=== PATIENT | female | born 1980 | race Caucasian/White ===

== ENCOUNTER 2016-07-12 05:39 | Day surgery (SDC) | payer MEDICAID ==
[2016-07-10 15:27] LABS: BASOPHILS 0.3 % (0.0-2.0); EOSINOPHILS 1.5 % (0-7); HEMATOCRIT 39.8 % (36.0-48.0); HEMOGLOBIN 13.2 g/dL (12-16); IMMATURE GRANULOCYTES 0.1 % (0-5); LYMPHOCYTES 38.8 % (15-50); MCH 27.8 pg (26.0-34.0); MCHC 33.2 g/dL (31.0-37.0); MEAN PLATELET VOLUME 9.6 fL (7.4-10.4); MONOCYTES 5.5 % (2-11); NEUTROPHILS 53.8 % (40-80); RBC 4.74 10x6/uL (4.00-5.40); RDW 14.2 % (11.5-14.5); WBC 8.7 10x3/uL (4.8-10.8)
[2016-07-10 15:39] LABS: PLATELET COUNT 187 10x3/uL (130-400)
[~2016-07-12] VITALS: Ht 162.6 cm; Wt 57.2 kg
[~2016-07-12 05:39] MED LIST: HYDROCODONE-APA1 TAB PO; IBUPROFEN600 MG PO; NIFEDIPINE ER30 MG PO; PRENATAL COMPLE1 TAB PO
[2016-07-12 10:20] VITALS: BP 115/74; Ht 162.6 cm; Wt 57.2 kg
[2016-07-12 10:52] LABS: HCG URINE NEGATIVE (NEGATIVE)
--- NOTE | 2016-07-12 14:28 | NUR ---
1400-RECEIVED PT FROM PACU AWAKE AND ALERT, VSS NO DISTRESS DENIES ANY PAIN OR N/V NO BLEEDING NOTED 1420-PT UP TO BATHROOM VOIDED WITHOUT ANY DIFFICULTY, FULL LIQUID TRAY GIVEN WILL CONTINUE TO MONITOR
--- NOTE | 2016-07-12 14:47 | NUR ---
1447-PT TOLERATED FULL LIQUID TRAY WELL, IV DISCONTINUED WITH CATHETER INTACT
--- NOTE | 2016-07-12 15:11 | NUR ---
1510-DISCHARGE INSTRUCTIONS GIVEN AND WENT OVER WITH PATIENT COPY HANDED TO HER WITH A FOLLOW UP APPOINTMENT MADE. PT STATES UNDERSTANDING AND DENIES ANY NEEDS OR CONCERNS AT THIS TIME. PT ESCORTED OUT VIA WHEELCHAIR IN STABLE CONDITION WITHOUT ANY DISTRESS WITH FAMILY TO DRIVE HOME IN PERSONAL CAR
--- NOTE | 2016-08-02 09:02 | OP ---
PATIENT NAME: SILVIA THOMAS MEDICAL RECORD: [id number] :80 LOCATION:D.OPS ADMISSION DATE: SURGEON: LEBRON DELGADO MD DATE OF OPERATION: 07/12/2016 PREOPERATIVE DIAGNOSIS: High-grade cervical dysplasia. POSTOPERATIVE DIAGNOSIS: High-grade cervical dysplasia. PROCEDURE: Removal of right vulvar lesions and loop electrosurgical excision procedure. SURGEON: Lebron Delgado MD ANESTHESIA: General by LMA. INTRAVENOUS FLUIDS: Per anesthesia record. SPECIMENS: Right vulvar lesion and cervical cone biopsy. COMPLICATIONS: None apparent. ESTIMATED BLOOD LOSS: Minimal. DESCRIPTON OF THE PROCEDURE: The patient was taken to the operating room where general anesthesia was achieved without difficulty. The patient was prepped and draped in normal sterile fashion in the dorsal lithotomy position in the [facility]. SCDs were on and running. The bladder was straight cathed approximately 5 cc of clear yellow urine. At that point, an insulated speculum was placed into the vagina. The cervix was identified and a loop electrosurgical excision procedure was performed to a depth of approximately 8-9 mm, the cervical crater was then fulgurated using the ball tip with good hemostasis noted. Monsel solution was then placed on the cervical crater and the speculum was removed, good hemostasis was noted. Attention was then turned to the right vulvar lesion, which was then grasped using a Japanese forceps and the loop cautery device was then used to excise at the base, a 3-0 Vicryl stitch was then used to approximate the skin with good hemostasis. The patient tolerated the procedure well, transferred to postanesthesia recovery stable without incident. TRANSINT:[id number] Voice Confirmation ID: [id number] DOCUMENT ID: [id number] LEBRON DELGADO MD at 0902 CC: [id number] DICTATION DATE: 07/12/16 1338 VACUUM METALIZER OPERATOR: 07/12/16 1849 [facility] 07/12/16 [place] [id number]
== END 2016-07-12 15:10 | disposition home or self-care (01) ==
LOC: D.OPS 05:39 → D.PAN 10:00 → D.OPS 15:10
PROVIDERS: Obstetrics & Gynecology
DX: D06.0 Carcinoma in situ of endocervix (principal); N72 Inflammatory disease of cervix uteri; N90.89 Other specified noninflammatory disorders of vulva and perineum; I10 Essential (primary) hypertension; Z79.891 Long term (current) use of opiate analgesic; Z79.1 Long term (current) use of non-steroidal anti-inflammatories (NSAID); Z79.899 Other long term (current) drug therapy; F17.200 Nicotine dependence, unspecified, uncomplicated

== ENCOUNTER 2016-09-13 05:47 | Day surgery (SDC) | payer MEDICAID ==
[2016-09-11 10:31] LABS: BASOPHILS 0.4 % (0-2); HEMATOCRIT 42.9 % (36.0-48.0); HEMOGLOBIN 13.9 g/dL (12-16); IMMATURE GRANULOCYTES 0.1 % (0-5); MCH 27.7 pg (26.0-34.0); MCHC 32.4 g/dL (31.0-37.0); MCV 85.5 fL (80.0-100.0); MEAN PLATELET VOLUME 9.8 fL (7.4-10.4); NEUTROPHILS 56.5 % (40-80); PLATELET COUNT 202 10x3/uL (130-400); RBC 5.02 10x6/uL (4.00-5.40)
[~2016-09-13] VITALS: Ht 162.6 cm; Wt 56.7 kg
--- NOTE | ~2016-09-13 | OP ---
PATIENT NAME: SILVIA THOMAS MEDICAL RECORD: [id number] :80 LOCATION:[facility] ADMISSION DATE: SURGEON: LEBRON DELGADO MD DATE OF OPERATION: 09/13/2016 PREOPERATIVE DIAGNOSIS: High-grade cervical dysplasia. POSTOPERATIVE DIAGNOSIS: High-grade cervical dysplasia. PROCEDURE: Loop electrosurgical excision procedure. SURGEON: Lebron Delgado MD ESTIMATED BLOOD LOSS: Minimal. INTRAVENOUS FLUIDS: Per anesthesia records. FINDINGS: Grossly normal appearing cervix and vagina. SPECIMENS: Cervical cone biopsy in 2 pieces. DESCRIPTION OF PROCEDURE: The patient was taken to the operating room where general anesthesia was achieved without difficulty. The patient was prepped and draped in normal sterile fashion in dorsal lithotomy position in the [facility]. At this point, approximately 50 cc of clear urine was drained with straight catheter from the patient's bladder. An insulated bivalve speculum was then placed into the vagina and the cervix was identified. At this point, a loop electrode was then used to remove approximately 7-8 mm of depth of the cervical transitional zone. The 5-mm square loop electrode was then used to excise another 3-mm or so in the most medial portion of the endocervical canal. Good hemostasis was noted. The entire canal was then fulgurated using the Bovie cautery. Monsel solution was then placed on the cervical crater. The speculum was then removed. The patient tolerated the procedure well and was transferred to postanesthesia recovery stable without incident. TRANSINT:[id number] Voice Confirmation ID: [id number] DOCUMENT ID: [id number] LEBRON DELGADO MD CC: [id number] DICTATION DATE: 09/13/16 1111 CHARGEMASTER ANALYST: 09/13/16 2108 [facility] 09/13/16 [facility] [address] [place] [address]
[2016-09-13 06:43] VITALS: BP 126/81; Ht 162.6 cm; Wt 56.7 kg
[2016-09-13 07:14] LABS: HCG URINE NEGATIVE (NEGATIVE)
[2016-09-13] MEDS ORDERED: HYDROCODON-ACE1 EAC7 PO (10:07)
[2016-09-13] MEDS ORDERED: IBUPROFEN600 MG PO (10:07)
== END 2016-09-13 10:40 | disposition home or self-care (01) ==
LOC: D.OPS 05:47 → D.PAN 08:15 → D.OPS 08:15
PROVIDERS: Obstetrics & Gynecology
DX: R87.613 High grade squamous intraepithelial lesion on cytologic smear of cervix (HGSIL) (principal); F17.200 Nicotine dependence, unspecified, uncomplicated; I10 Essential (primary) hypertension; Z01.812 Encounter for preprocedural laboratory examination

== ENCOUNTER 2016-10-17 06:11 | Emergency (ER) | payer MEDICAID ==
[2016-09-13 06:43] VITALS: BMI 21.5
[~2016-10-17 06:11] MED LIST changes: +HYDROCODON-ACE1 EAC7 PO
[2016-10-17 06:54] LABS: BASOPHILS 0.5 % (0-2); EOSINOPHILS 0.6 % (0-7); HEMATOCRIT 41.9 % (36.0-48.0); IMMATURE GRANULOCYTES 0.3 % (0-5); LYMPHOCYTES 28.2 % (15-50); MCH 27.9 pg (26.0-34.0); MCHC 33.4 g/dL (31.0-37.0); MCV 83.5 fL (80.0-100.0); MEAN PLATELET VOLUME 9.4 fL (7.4-10.4); MONOCYTES 7.1 % (2-11); NEUTROPHILS 63.3 % (40-80); PLATELET COUNT 172 10x3/uL (130-400); RBC 5.02 10x6/uL (4.00-5.40); RDW 14.8 % (11.5-14.5); WBC 6.5 10x3/uL (4.8-10.8)
[2016-10-17 07:24] LABS: CALC OSMOLALITY 273 mosm/kg (275-300); CALCIUM 8.7 mg/dL (8.5-10.1); CARBON DIOXIDE 24.6 mmol/L (21.0-32.0); CHLORIDE - SERUM 102 mmol/L (98-107); CREATINE KINASE 148 UL (21-215); CREATININE - SERUM 1.1 mg/dL (0.6-1.3); GLUCOSE 95 mg/dL (74-106); POTASSIUM - SERUM 3.8 mmol/L (3.5-5.1); SODIUM 137 mmol/L (136-145); TROPONIN-I < 0.017 ng/mL (0.000-0.060); UREA NITROGEN 12 mg/dL (7-18); eGFR NON AFRICAN AMERICAN 60 mL/min (90-120)
== END 2016-10-17 10:40 | disposition left against medical advice (07) ==
LOC: D.ER 06:11
PROVIDERS: Family Medicine
DX: R51 Headache (principal); R42 Dizziness and giddiness; H53.8 Other visual disturbances

== ENCOUNTER 2018-09-19 05:00 | Day surgery (SDC) | payer BC ==
[2018-09-18 09:14] LABS: BASOPHILS 0.5 % (0-2); EOSINOPHILS 1.5 % (0-7); HEMATOCRIT 42.8 % (36.0-48.0); HEMOGLOBIN 14.6 g/dL (12-16); IMMATURE GRANULOCYTES 0.1 % (0-5); LYMPHOCYTES 35.4 % (15-50); MCH 29.4 pg (26.0-34.0); MCHC 34.1 g/dL (31.0-37.0); MCV 86.3 fL (80.0-100.0); MEAN PLATELET VOLUME 9.4 fL (7.4-10.4); MONOCYTES 5.5 % (2-11); PLATELET COUNT 182 10x3/uL (130-400); RBC 4.96 10x6/uL (4.00-5.40); RDW 13.3 % (11.5-14.5); WBC 7.6 10x3/uL (4.8-10.8)
[2018-09-18 09:26] LABS: INR 1.02 (0.85-1.17); PROTIME 12.9 SECONDS (11.6-15.0)
[2018-09-18 09:27] LABS: APTT 64.2 SECONDS (22.8-39.4)
[2018-09-19 06:17] VITALS: BP 119/76; BMI 20.9
[2018-09-19 06:35] LABS: HCG URINE NEGATIVE (NEGATIVE)
[2018-09-19 06:45] VITALS: BMI 20.9
[2018-09-19 07:46] LABS: INR 1.06 (0.85-1.17); PROTIME 13.3 SECONDS (11.6-15.0)
[2018-09-19 07:50] LABS: APTT 32.1 SECONDS (22.8-39.4)
[2018-09-19] MEDS ORDERED: PERCOCET 5-3251 TAB PO (13:11)
--- NOTE | 2018-09-19 13:50 | NUR ---
PATIENT STATES FEELING MUCH BETTER, WANTS TO GO HOME, PATIENT AMBULATES TO BATHROOM AND VOIDS IN TOILET FOR SECOND TIME SINCE SURGERY. STATES PAIN IS MUCH BETTER, RATES PAIN AT 4 ON 0-10 SCALE. DECLINES PAIN MED AT THIS TIME DUE TO RISK FOR SEDATION. RIGHT HAND PIV DC'D WITH TIP INTACT. PATIENT STATES SHE PULLED VAGINAL PACKING OUT WHEN IN BATHROOM THIS TIME. DISCHARGE INSTRUCTIONS REVIEWED WITH PATIENT. DISCHARGED HOME VIA WHEELCHAIR TO PRIVATE VEHICLE AT 1400
--- NOTE | 2018-09-22 09:03 | OP ---
PATIENT NAME: SILVIA THOMAS MEDICAL RECORD: [id number] :80 LOCATION:D.OPS ADMISSION DATE: SURGEON: SUSAN DIEZ MD DATE OF OPERATION: 09/19/2018 SURGEON: Susan Diez MD ANESTHESIA: General anesthesia by Enrrique Soni CRNA. DIAGNOSES: 1. Female stress urinary incontinence. 2. Interstitial cystitis. PROCEDURES: 1. Pubovaginal sling with mesh -- Coloplast Nilson. 2. Cystoscopy, hydrodistention to 600 mL, intravesical Rimso installation. FINDINGS: On cystoscopy, no bladder injury. Diffuse bladder inflammation without any bladder tumors. Single ureteral orifices bilaterally. ESTIMATED BLOOD LOSS: Less than 50 mL. CLINICAL HISTORY: This is a 37-year-old female, , A0, who has a problem with cervical dysplasia. Dr. Delgado is going to perform a third LEEP procedure on her today. At the same time, she wanted to have her female stress urinary incontinence and interstitial cystitis symptoms dealt with. She does not plan to have any more children. She is not allergic to any medications. She was given perioperative antibiotics by Dr. Delgado who went first with her surgery. Once he had completed the LEEP surgery, then I came in to do my portion of the procedure. DESCRIPTION OF PROCEDURE: She was already in the stirrups and I placed her in Trendelenburg position. The stirrups were relatively high and I placed the legs in a much lower position closer to being flat. The reason for doing this is that if the sling is placed when the legs were very high up and if the tension seems adequate at that time when the patient is actually standing or sitting, it will be excessive tension. Therefore, it is better to place the sling with the legs relatively flat. The weighted speculum was placed to hold down the posterior vaginal wall. The anterior vaginal wall was infiltrated with Pitressin solution. Twenty units of Pitressin was dissolved in 100 mL of injectable saline. This was injected into the periurethral area for hydrodissection. A Cosme catheter was placed into the bladder to bag drainage. A T-shaped incision was made in the anterior vaginal wall under the urethra. The crossbar of the T was about 1 cm away from the urethral meatus. The vertical bar of the T runs along the anterior urethral wall under the urethra. Dissection was done using Metzenbaum scissors. We dissected the pubocervical fascia until the obturator membrane was exposed on each side. We then landmarked for the trocar passage for the transobturator passage of the Coloplast Nilson graft. This was inferior to the insertion of the adductor longus tendon on the descending pubic ramus. A stab incision was made here on each side. The helical trocars were then passed through this groin stab incision, deep to the descending pubic ramus and out through the apex of the obturator membrane anteriorly. Once it was in the vaginal dissection space, the graft was threaded through the eyelet hole in the end of the trocar needle. The needle was then withdrawn resulting in transobturator passage of the graft. This was OPERATIVE REPORT [id number] SILVIA THOMAS done on each side. The graft was placed under the mid urethra relatively loosely. It laid completely flat. At this point, we removed the Cosme catheter and cystoscopy was performed. No bladder injury was noted. She was given hydrodistention to 600 mL of saline and the volume was held for a few minutes. The bladder was diffusely inflamed. No bladder tumors were seen. Now with some manual suprapubic pressure, we could see leakage of urine per the urethra. The sling tension was gradually increased until the leakage was greatly diminished. With sufficient suprapubic pressure; however, this could still be overcome. At this point, I did not wish to put any more sling pressure because I did not want her to go into retention postoperatively. The sling ends were cut where they exited the groin skin. The skin was closed with simple interrupted 4-0 Vicryl. The Cosme catheter was placed back into the bladder to drain the bladder. The vaginal incision was closed using running 4-0 Monocryl. Vaginal packing consisting of Kerlix infiltrated with estrogen cream was placed into the vagina. This will be removed prior to the patient going home today. Finally, we removed the Cosme catheter and placed a red rubber catheter into the bladder. Through the lumen of the red rubber catheter, we instilled 50 mL of Rimso solution into the bladder. Once the solution was in the bladder, the catheter was removed, leaving the solution in the bladder. The patient will void this solution out today. TRANSINT:[id number] Voice Confirmation ID: [id number] DOCUMENT ID: [id number] SUSAN DIEZ MD at 0903 CC: [id number] DICTATION DATE: 09/19/18 1023 BOXCAR WEIGHER: 09/19/18 1235 [facility] 09/19/18 [place] [id number] [place] [id number]
--- NOTE | 2018-10-23 19:34 | OP ---
PATIENT NAME: SILVIA THOMAS MEDICAL RECORD: [id number] :80 LOCATION:D.[facility] ADMISSION DATE: SURGEON: LEBRON DELGADO MD DATE OF OPERATION: 09/19/2018 PREOPERATIVE DIAGNOSIS: High-grade cervical dysplasia. POSTOPERATIVE DIAGNOSIS: High-grade cervical dysplasia. PROCEDURE: Loop electrosurgical excision procedure (LEEP). SURGEON: Lebron Delgado MD ANESTHESIA: General endotracheal. INTRAVENOUS FLUIDS: Per anesthesia record. ESTIMATED BLOOD LOSS: Minimal. SPECIMENS: Cervical cone biopsy. FINDINGS: Grossly normal-appearing external genitalia and cervix. COMPLICATIONS: None apparent. PROCEDURE IN DETAIL: The patient was taken to the operating room, where general anesthesia was achieved without any difficulty. The patient was then prepped and draped in normal sterile fashion in the dorsal lithotomy position in the [facility]. The patient was prepped and draped. The bladder was drained of approximately 50 cc of clear yellow urine. At this point, an insulated speculum was placed into the vagina, which had been thoroughly prepped. The cervical os was identified and a LEEP procedure was performed using a 2- x 1-cm loop electrode tip. Good hemostasis was noted and the remaining crater was then cauterized using the ball tip cautery and a ferric subsulfate solution was placed onto the cervix. The speculum was removed. The patient tolerated the procedure well. The patient was kept under general anesthesia as this was a combined case with Dr. Marrufo from urology. TRANSINT:[id number] Voice Confirmation ID: [id number] DOCUMENT ID: [id number] LEBRON DELGADO MD at 1934 CC: [id number] DICTATION DATE: 10/06/18 1631 DESK REPRESENTATIVE: 10/06/18 1856 [facility] 09/19/18 [place] [id number] [place] [address]
== END 2018-09-19 14:00 | disposition home or self-care (01) ==
LOC: D.OPS 05:00 → D.PAN 07:30 → D.OPS 07:30
PROVIDERS: Anesthesiology; ATTEND Obstetrics & Gynecology
DX: N87.1 Moderate cervical dysplasia (principal); N39.3 Stress incontinence (female) (male); N30.10 Interstitial cystitis (chronic) without hematuria; Z01.812 Encounter for preprocedural laboratory examination

== ENCOUNTER → 2018-09-24 18:20 | Outpatient (CLI) | payer BC ==
[2018-09-19 06:45] VITALS: BMI 20.9
[~2018-09-24 18:20] MED LIST changes: +PERCOCET 5-3251 TAB PO
== END | disposition home or self-care (01) ==
LOC: D.LABREF 18:20
PROVIDERS: ATTEND Urology
DX: N39.0 Urinary tract infection, site not specified (principal)

== ENCOUNTER → 2018-10-29 15:32 | Outpatient (CLI) | payer BC | END | disposition home or self-care (01) | LOC: D.LABREF 15:32 | PROVIDERS: ATTEND Urology | DX: R35.0 Frequency of micturition (principal); R39.89 Other symptoms and signs involving the genitourinary system ==

== ENCOUNTER 2019-08-05 17:03 | Inpatient (IN) | payer BC ==
[~2019-08-05] VITALS: Ht 162.6 cm; Wt 51.8 kg
[2019-08-19 09:12] LABS: BASOPHILS 0.3 % (0-2); EOSINOPHILS 1.2 % (0-7); HEMATOCRIT 43.1 % (36.0-48.0); HEMOGLOBIN 14.2 g/dL (12-16); IMMATURE GRANULOCYTES 0.1 % (0-5); LYMPHOCYTES 34.4 % (15-50); MCH 29.9 pg (26.0-34.0); MCHC 32.9 g/dL (31.0-37.0); MCV 90.7 fL (80.0-100.0); MEAN PLATELET VOLUME 9.6 fL (7.4-10.4); MONOCYTES 6.4 % (2-11); NEUTROPHILS 57.6 % (40-80); PLATELET COUNT 199 10x3/uL (130-400); RBC 4.75 10x6/uL (4.00-5.40); RDW 12.8 % (11.5-14.5); WBC 6.9 10x3/uL (4.8-10.8)
[2019-08-19 09:50] LABS: CALC OSMOLALITY 280 mosm/kg (275-300); CALCIUM 8.7 mg/dL (8.5-10.1); CARBON DIOXIDE 28.7 mmol/L (21.0-32.0); CHLORIDE - SERUM 103 mmol/L (98-107); CREATININE - SERUM 0.8 mg/dL (0.6-1.3); GLUCOSE 79 mg/dL (74-106); POTASSIUM - SERUM 3.8 mmol/L (3.5-5.1); SODIUM 142 mmol/L (136-145); UREA NITROGEN 9 mg/dL (7-18); eGFR NON AFRICAN AMERICAN 85 mL/min (90-120)
[2019-08-21] VITALS (16 sets, daily range): BP systolic 99–130; BP diastolic 55–83; Ht 162.6 cm; Wt 51.8 kg
[2019-08-21 06:21] LABS: HCG URINE NEGATIVE (NEGATIVE)
--- NOTE | 2019-08-21 10:04 | NUR ---
RECEIVED PT FROM RR VIA BED TO ROOM 1278. BED LOCKED AND PLACED IN LOW POSITION. PT LYING TO LEFT SIDE IN BED IN POSITION. PT AWAKE, FREQUENTLY DROWSY. C/O INCISIONAL PAIN OF "10" ON 0-10 PAIN SCALE. STATES PAIN "SHARP". BP, HR AND RESP OBTAINED. UNABLE TO OBTAIN TEMP VIA ORAL OR AXILIARY. RR NURSE STATES TEMPORAL TEMP 97.8 IN RECOVERY. HRRR WITHOUT AUDIBLE MURMUR. BBS CLEAR. BS HYPOACTIVE. ABDOMEN SOFT/NON-DISTENDED. ABDOMINAL DRESSING DRY WITH DRAINAGE NOTED AND CIRCLED. NO VAGINAL DISCHARGE NOTED. PERIPAD TO PERINEUM TO CONTINUE TO MONITOR. NEG HOMANS' SIGN. PPP. NO EDEMA NOTED TO BLE. PIV TO RIGHT AC. SITE CLEAR. LR INFUSING AT 125 ML/HR ON ALARIS PUMP. SCDS ON BLE. PUMP ON. MA TO GRAVITY DRAINING CLEAR, BLUE URINE. SR UP X 2. CALL LIGHT IN REACH.
--- NOTE | 2019-08-21 10:14 | NUR ---
DILAUDID SUPERVISOR TELEVISION CHASSIS REPAIR STARTED ORDERED. 0.4 MG BOLUS GIVEN FOR BREAKTHROUGH PAIN OF "10" ON 0-10 PAIN SCALE. PT INSTRUCTED ON MED AND USE OF BUTTON. VERBALIZES UNDERSTANDING.
--- NOTE | 2019-08-21 10:49 | NUR ---
PT C/O NAUSEA. EMESIS BASIN AND COLD WET CLOTH PROVIDED. ZOFRAN 4 MG GIVEN SIVP OVER 2 MINUTES. PT INSTRUCTED ON MED. VERBALIZES UNDERSTANDING.
--- NOTE | 2019-08-21 11:12 | NUR ---
PT LYING TO LEFT SIDE. STATES FEELING "A LITTLE BETTER". STATES PAIN IMPROVING.
--- NOTE | 2019-08-21 11:46 | NUR ---
O2 SAT DOWN TO 92%. O2 ON PER N/C AT 2 LITERS. O2 SAT NOW 99%.
--- NOTE | 2019-08-21 12:11 | NUR ---
DR PENALOZA VISITS WITH PT.
--- NOTE | 2019-08-21 12:45 | NUR ---
PT OFFERED ICE WATER. C/O NAUSEA AFTER TAKING ONE SIP. WILL HOLD OFF ON PO FLUIDS FOR NOW.
--- NOTE | 2019-08-21 13:30 | NUR ---
PT REPOSITIONS TO RIGHT SIDE IN BED. C/O NAUSEA AND FEELING DIZZY. WILL NOTIFY DR PENALOZA.
--- NOTE | 2019-08-21 13:45 | NUR ---
DR PENALOZA NOTIFIED PT C/O NAUSEA AFTER ZOFRAN GIVEN. ORDERS RECEIVED.
--- NOTE | 2019-08-21 14:05 | NUR ---
LAB HERE TO OBTAIN ORDERED LAB.
[2019-08-21 14:27] LABS: BASOPHILS 0 % (0-2); EOSINOPHILS 0 % (0-7); HEMATOCRIT 39.3 % (36.0-48.0); HEMOGLOBIN 12.7 g/dL (12-16); IMMATURE GRANULOCYTES 0.2 % (0-5); LYMPHOCYTES 5.1 % (15-50); MCH 29.1 pg (26.0-34.0); MCHC 32.3 g/dL (31.0-37.0); MCV 89.9 fL (80.0-100.0); MEAN PLATELET VOLUME 9.4 fL (7.4-10.4); MONOCYTES 1.8 % (2-11); NEUTROPHILS 92.9 % (40-80); PLATELET COUNT 170 10x3/uL (130-400); RBC 4.37 10x6/uL (4.00-5.40); RDW 12.7 % (11.5-14.5); WBC 10.4 10x3/uL (4.8-10.8)
--- NOTE | 2019-08-21 14:34 | NUR ---
PT GIVEN PHENERGAN 25 MG IM TO LEFT HIP. PT LIZZIE WELL.
[2019-08-21 14:43] LABS: CALC OSMOLALITY 277 mosm/kg (275-300); CALCIUM 8.3 mg/dL (8.5-10.1); CARBON DIOXIDE 25.5 mmol/L (21.0-32.0); CHLORIDE - SERUM 103 mmol/L (98-107); CREATININE - SERUM 0.8 mg/dL (0.6-1.3); GLUCOSE 117 mg/dL (74-106); POTASSIUM - SERUM 3.9 mmol/L (3.5-5.1); SODIUM 139 mmol/L (136-145); UREA NITROGEN 10 mg/dL (7-18); eGFR NON AFRICAN AMERICAN 85 mL/min (90-120)
--- NOTE | 2019-08-21 14:46 | NUR ---
SCOPALAMINE PATCH PLACED BEHIND PT LEFT EAR. PT INSTRUCTED ON MEDICATION. VERBALIZES UNDERSTANDING.
--- NOTE | 2019-08-21 15:40 | NUR ---
PT REQUESTS FOOD. PT INFORMED OF ORDERS FOR CLEAR LIQUIDS AND PT BEING NAUSEATED AND DIZZY. PT OFFERED SPRITE, JELLO, POPSICLE AND WATER. PT RECEIVES SPRITE AT REQUEST.
--- NOTE | 2019-08-21 16:46 | NUR ---
DRESSING WITH SMALL AREA OF SEROSANGUINOUS DRAINAGE NOTED/CIRCLED. SCANT AMT OF BLOODY VAGINAL DISCHARGE NOTED ON PERIPAD. FRESH ICE PACK TO INCISION. VSS. PT OFF O2 PER N/C WITH O2 SAT AT 99%. PT DENIES NEED FOR ADDITIONAL PAIN MED AT THIS TIME.
--- NOTE | 2019-08-21 17:10 | NUR ---
PT C/O ABDOMINAL PAIN OF "8-9" ON 0-10 PAIN SCALE. TORADOL 30 MG GIVEN SIVP OVER 2 MINUTES. PT INSTRUCTED ON MED. VERBALIZES UNDERSTANDING.
--- NOTE | 2019-08-21 19:30 | NUR ---
PT REC'D IN BED AT THIS TIME. IV SITE PATENT. MA PATENT WITH SMALL AMOUT OF BLUE COLOR NOTED. DRESSING TO ABDOMEN DRY AND INTACT WITH OLD DRAINAGE NOTED. SCDS IN PLACE AND FUNCTIONAL. VSS. NO ACUTE DISTRESS NOTED AT THIS TIME. Constanza SANTANA RN
--- NOTE | 2019-08-21 20:29 | NUR ---
PT IN BED AND ON PHONE. NO NEEDS VOICED AT THIS TIME. Constanza SANTANA RN
--- NOTE | 2019-08-21 21:08 | NUR ---
PT DESIRING SHEETS TO BE CHANGED. IDRIS HATCH AT THIS TIME. 450 ML EMPTIED FROM MA CATH. Constanza SANTANA RN
--- NOTE | 2019-08-21 22:02 | NUR ---
PT ASLEEP AT THIS TIME. RESTING COMFORTABLY. Constanza SANTANA RN
--- NOTE | 2019-08-21 23:10 | NUR ---
VSS AT THIS TIME. TORADOL GIVEN FOR PAIN CONTROL. Constanza SANTANA RN
--- NOTE | 2019-08-22 00:30 | NUR ---
PT RESTING AT THIS TIME. DID NOT AWAKEN. MA CATH PATENT AT THIS TIME. Constanza SANATNA RN
--- NOTE | 2019-08-22 01:05 | NUR ---
PT REC'D IN BED AWAKE AT THIS TIME. DENIES NEEDS AT THIS TIME. Constanza SANTANA RN
--- NOTE | 2019-08-22 03:50 | NUR ---
PT RESTING AT THIS TIME. NEW BAG OF LR UP AT 125 ML/HR. NO DISTRESS NOTED. Constanza SANTANA. RN
[2019-08-22 05:24] VITALS: BP 106/61
--- NOTE | 2019-08-22 05:24 | NUR ---
PT STATES THAT PAIN IS A 5/10. PT MEDICATED WITH TORADOL. WILL MONITOR. Constanza SANTANA RN
--- NOTE | 2019-08-22 06:15 | NUR ---
PT REC'D IN BED ASLEEP AT THIS TIME. NO DISTRESS NOTED. Constanza SANTANA RN
[2019-08-22 07:00] LABS: BASOPHILS 0.1 % (0-2); EOSINOPHILS 0 % (0-7); HEMATOCRIT 35.7 % (36.0-48.0); HEMOGLOBIN 11.5 g/dL (12-16); IMMATURE GRANULOCYTES 0.3 % (0-5); LYMPHOCYTES 14.8 % (15-50); MCH 28.8 pg (26.0-34.0); MCHC 32.2 g/dL (31.0-37.0); MCV 89.5 fL (80.0-100.0); MEAN PLATELET VOLUME 9.3 fL (7.4-10.4); MONOCYTES 5.6 % (2-11); NEUTROPHILS 79.2 % (40-80); PLATELET COUNT 154 10x3/uL (130-400); RBC 3.99 10x6/uL (4.00-5.40); RDW 12.9 % (11.5-14.5); WBC 10.9 10x3/uL (4.8-10.8)
[2019-08-22 07:21] LABS: CALC OSMOLALITY 275 mosm/kg (275-300); CALCIUM 8.4 mg/dL (8.5-10.1); CARBON DIOXIDE 25.4 mmol/L (21.0-32.0); CHLORIDE - SERUM 106 mmol/L (98-107); CREATININE - SERUM 0.7 mg/dL (0.6-1.3); GLUCOSE 82 mg/dL (74-106); SODIUM 139 mmol/L (136-145); UREA NITROGEN 9 mg/dL (7-18); eGFR NON AFRICAN AMERICAN > 90 mL/min (90-120)
--- NOTE | 2019-08-22 08:00 | NUR ---
ASSUMED CARE OF THIS PATIENT. LAYING IN BED. DENIES NEEDING ANYTHING. DR PENALOZA VISITED, PER PT THE PLAN IS REGULAR DIET, IF TOLERATING AFTER LUNCH AND NO N&V PLANS TO GO HOME. WILL DC IV, MA AND COMPLETE SHIFT ASSESSMENT AFTER BREAKFAST. SIDERAILS UP X 2, CALL LIGHT IN REACH.
--- NOTE | 2019-08-22 08:35 | NUR ---
TO ROOM TO COMPLETE SHIFT ASSESSMENT, DC IV AND MA. CURRENTLY SLEEPING IN LOW FOWLERS POSITION, RESPIRATIONS EVEN. WILL RETURN WHEN PT AWAKE TO COMPLETE ASSESSMENT AND DC IV/MA.
[2019-08-22 09:05] VITALS: BP 119/71
--- NOTE | 2019-08-22 09:05 | NUR ---
SHIFT ASSESSMENT COMPLETED. C/O BLURRED VISION WHEN LOOKING AT CELL PHONE. SAYS SHE NOTICED YESTERDAY WHEN SHE CAME INTO THE HOSPITAL. DENIES USE OF CONTACTS OF GLASSES. LAUREN. 48 YRS OLD. DENIES NEEDING ANYTHING FOR PAIN AT THIS TIME. DESIRES TO TAKE A SHOWER. FRANCESCA CHARLES'Taylor WITHOUT DIFFICULTY. IV CONVERTED TO SALINE LOCK. ANTICIPATES GOING HOME THIS AFTERNOON.
--- NOTE | 2019-08-22 09:30 | NUR ---
UP TO SHOWER, ITEMS GIVEN FOR SHOWER, INSTRUCTED ON HEBICLEANSE AND CLEANING OF INCISION SITE. INSTRUCTED ON EMERGENCY CALL LIGHT. VERBALIZED UNSTRUCTION.
--- NOTE | 2019-08-22 09:50 | NUR ---
COMPLETED SHOWER. DRESSED IN REGULAR CLOTHES. INSTRUCTED ON USE OF PERIPAD OVER INCISIONAL SITE. PT FEELS SITE IS SWOLLEN. APPEARANCE IS WNL FOR POST OP APPEARANCE. DISCUSSED PAIN MANAGEMENT AND PAIN SCALE. SAYS SHE HAS OCCAIONAL PAIN ON RIGHT SIDE 11/12 BUT DENIES NEEDING ANYTHING FOR PAIN NOW. INSTRUCTED TO LET RN KNOW IF PAIN MEDICATION IS NEEDED. NO REQUETS, SITTING ON COUCH. [place] HAT IN TOILET TO MEASURE FIRST TWO VOIDS, PT WAS INSTRUCTED.
[2019-08-22 10:55] VITALS: BP 103/58
--- NOTE | 2019-08-22 11:07 | NUR ---
TO ROOM TO CHECK ON PT. LAYING IN BED, EYES CLOSED, AROUSED EASILY. SAYS SHE THINKS SHE NEEDS PAIN PILL NOW. 10 RIGHT INTERMITTENT INCISIONAL BURNING STABBING. PERCOCET 10 MG GIVEN PO FOR RELIEF. SIDE RAILS UP X 2, CALL LIGHT IN REACH. INSTRUCTED PT THAT MEDICATION MAY CAUSE DROWSINESS, TO CALL IF NEEDING ASSISTANCE GETTING UP IF FEELING LIGHTHEADED. VERBALIZED UNDERSTANDING. DESIRES TO NAP, LIGHTS OFF PER PT REQUEST.
[2019-08-22] MEDS ORDERED: PERCOCET 10-321 EAC1 PO (11:38)
[2019-08-22] MEDS ORDERED: IBUPROFEN600 MG PO (11:38)
--- NOTE | 2019-08-22 11:55 | NUR ---
SLEEPING SUPINE, RESPIRATIONS EVEN. SIDERAILS UP X 2, CALL LIGHT IN REACH.
--- NOTE | 2019-08-22 12:49 | NUR ---
FINISHED EATING LUNCH. SAYS SHE STILL HAS PAIN 8/10 INTERMITTENT RIGHT SIDE STABBING/BURNING. HAS NOT VOIDED SINCE MA CATH WAS TAKEN OUT. SAYS SHE DID PASS A LOT OF GAS EARLIER. DECLINES ADDITIONAL PAIN MEDICATION. STATES "I WILL JUST TAKE WHAT HE IS SENDING ME HOME WITH" OFFERED MOTRIN AND/OR TO CALL MD. STATES "I'M OK". NO DISTRESS NOTED. GETTING READY TO GET UP TO GO TO BATHROOM. WOULD LIKE TO GO HOME TODAY.
--- NOTE | 2019-08-22 12:58 | NUR ---
PAGE DR PENALOZA TO CHECK ON PLANS FOR PT DC.
--- NOTE | 2019-08-22 13:05 | NUR ---
DR GARCIA MANAGER URGENT CARE AND CALLED UNIT TO CHECK ON ANOTHER PATIENT. ASKED DR GARCIA ABOUT DC STATUS FOR THIS PT. SAYS SHE WILL CHECK WITH DR PENALOZA. DR GARCIA WAS NOTIFIED OF PATIENT C/O BLURRED VISION THIS MORNING THAT WAS PRESENT ON ADMIT, VOIDED X 1 150 ML, PASSING FLATUS, PAIN SCALE/MANAGMENT AND PATIENT DESIRE TO GO HOME.
--- NOTE | 2019-08-22 13:13 | NUR ---
DR GARCIA CALLED BACK AFTER TALKING TO DR PENALOZA AND T.O. RECEIVED TO [place] [facility].
--- NOTE | 2019-08-22 14:08 | NUR ---
DC'D VIA WHEELCHAIR TO CAR AFTER DCING SALINE LOCK WITH TIP INTACT, PROVIDING VERBAL AND WRITTEN INFORMATION ON POST OPERATIVE CARE, MEDICATION ADMINISTRATION, SIGNS OF INFECTION, DANGER SIGNS AND FOLLOW-UP. VERBALIZED UNDERSTANDING. FAMILY MEMBER DRIVING. TO CALL SATURDAY TO SCHEDULE F/U FOR STAPLE REMOVAL. SAYS SHE IS SUPPOSED TO SEE HIM ON SATURDAY. ALL BELONGINGS REMOVED FROM ROOM, HAS DC INSTRUCTIONS AND PRESCRIPTION.
== END 2019-08-22 14:08 | disposition home or self-care (01) | DRG 743 ==
LOC: D.SDCHOLD 08-21 05:43 → D.LD 08-21 05:43 → D.M2 08-21 07:30 → D.SDCHOLD 08-21 07:30 → D.LD 08-21 10:06
PROVIDERS: ADMIT Obstetrics & Gynecology; ATTEND Obstetrics & Gynecology
PROC: 0TNB0ZZ Release Bladder, Open Approach (ICD-10-PCS; 2019-08-21)
PROC: 0UT90ZZ Resection of Uterus, Open Approach (ICD-10-PCS; principal; 2019-08-21 07:30)
PROC: 0UB70ZZ Excision of Bilateral Fallopian Tubes, Open Approach (ICD-10-PCS; 2019-08-21 07:30)
DX: R87.613 High grade squamous intraepithelial lesion on cytologic smear of cervix (HGSIL) (principal); F32.9 Major depressive disorder, single episode, unspecified; Z72.0 Tobacco use; N32.89 Other specified disorders of bladder